=== PATIENT | female | born 1975 | race Caucasian/White ===

== ENCOUNTER → 2022-10-19 12:49 | Outpatient (CLI) | payer SELFPAY ==
--- NOTE | ~2022-10-19 | XR_ITS ---
Left Shoulder Technique: AP and scapular Y views were obtained. Clinical History: Pain Findings: No fracture or dislocation is seen. Osseous alignment is anatomic. The glenohumeral and acr omioclavicular joint spaces are preserved. Soft tissues are unremarkable. Impression: Unremarkable left shoulder radiographs. Reviewed, dictated and finalized at [place] [facility]. Impression: Unremarkable left shoulder radiographs.
== END ==
DX: M25.512 Pain in left shoulder (principal)
CPT/HCPCS: 73030